=== PATIENT | female | born 1995 | race Caucasian/White ===

== ENCOUNTER 2020-11-19 12:19 | Emergency (ER) | payer SELFPAY ==
[~2020-11-19] VITALS: Ht 157.5 cm; Wt 61.7 kg
[2020-11-19 12:30] VITALS: BP 124/83
[2020-11-19] MEDS ORDERED: PRED20TA5 PO (12:46)
[2020-11-19] MEDS ORDERED: CEPH-588 PO (12:46)
[2020-11-19 13:11] VITALS: BP 124/83
--- NOTE | 2020-11-19 13:11 | NUR ---
NO NURSING INTERVENTIONS PROVIDED
--- NOTE | 2020-11-19 13:11 | NUR ---
Patient discharged with v/s stable. Written and verbal after care instructions given and explained. Patient alert, oriented and verbalized understanding of instructions. Ambulatory with steady gait. All questions addressed prior to discharge. ID band removed. Patient advised to follow up with PMD. Rx of KEFLEX AND PREDNISONE given. Patient educated on indication of medication including possible reaction and side effects. Opportunity to ask questions provided and answered.
== END 2020-11-19 13:11 | disposition home or self-care (01) ==
LOC: MED 12:19
DX: L03.90 Cellulitis, unspecified (principal); Z20.2 Contact with and (suspected) exposure to infections with a predominantly sexual mode of transmission; Z79.899 Other long term (current) drug therapy
CPT/HCPCS: 36415; 81002; 81025; 86592; 87491; 99283